=== PATIENT | female | born 1945 | race Caucasian/White ===

== ENCOUNTER 2017-02-21 23:17 | Emergency (ER) | payer OTHER ==
[~2017-02-21] VITALS: Ht 157.5 cm; Wt 50.5 kg
[~2017-02-21 23:17] MED LIST: CALC250T PO; CO-QCAP PO; DOCU1CAP39 PO; FISHCAP4 PO; FLUO40CA PO; FLUT1INH INH; HYDR200T3 PO; LACTCAP8 PO; MULT-65 PO; OMEG1CAP28 PO; OXYC-392 PO; PANT40TA3 PO; PRAV20TA2 PO; TIZA4TAB PO; TRAM50TA PO; TRAZ50TA12 PO
[2017-02-21 23:24] VITALS: BP 144/74; PULSE 71; RESP 12; TEMP 97.4; O2SAT 100
[2017-02-21 23:41] VITALS: BP 159/82; PULSE 71; RESP 20; O2SAT 100
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
[2017-02-22 00:18] LABS: AUTOMATED NEUTROPHIL # 5.4 TH/MM3 (1.8-7.7); BASOPHIL % 0.4 % (0.0-2.0); EOSINOPHIL % 0.6 % (0.0-4.0); HEMATOCRIT 38.1 % (35.0-46.0); HEMO FLAGS DIFF FINAL; LYMPH % 16.8 % (9.0-44.0); LYMPHOCYTE # 1.2 TH/MM3 (1.0-4.8); MEAN CELL VOLUME 91.2 FL (80.0-100.0); MEAN CORPUSCULAR HEMOGLOBIN 30.8 PG (27.0-34.0); MEAN CORPUSCULAR HGB CONC 33.8 % (32.0-36.0); MONO % 10.9 % (0.0-8.0); NEUT % 71.3 % (16.0-70.0); PLATELET COUNT 262 TH/MM3 (150-450); RED BLOOD COUNT 4.18 MIL/MM3 (4.00-5.30); RED CELL DISTRIBUTION WIDTH 13.4 % (11.6-17.2); WHITE BLOOD COUNT 7.4 TH/MM3 (4.0-11.0)
--- NOTE | 2017-02-22 00:32 | RADHPO ---
EXAM DATE/TIME: 02/22/2017 00:05 [facility] COMPARISON: No previous studies available for comparison. INDICATIONS : Short of breath. MEDICAL HISTORY : Hypercholesterolemia. Hypertension Gastroesophageal reflux disease. SURGICAL HISTORY : Cholecystectomy. Appendectomy. Tonsillectomy. ENCOUNTER: Initial ACUITY: 1 month PAIN SCORE: 5/10 LOCATION: Bilateral chest FINDINGS: The lungs are clear without infiltrate, nodule, or mass. There is no appreciable pleural effusion fo r technique. Heart and mediastinum are unremarkable. CONCLUSION: No acute cardiopulmonary disease. Gil Disla MD on February 22, 2017 at 0:29 Board Certified Radiologist. This report was verified electronically.
[2017-02-22 00:33] LABS: CHLORIDE 102 MEQ/L (98-107); POTASSIUM 3.7 MEQ/L (3.5-5.1); SODIUM (NA) 138 MEQ/L (136-145)
[2017-02-22 00:37] LABS: ANION GAP 5 MEQ/L (5-15); BICARBONATE 30.9 MEQ/L (21.0-32.0); BLOOD UREA NITROGEN 15 MG/DL (7-18); MAGNESIUM 2.3 MG/DL (1.5-2.5); PROTHROMBIN TIME - PATIENT 10.9 SEC (9.8-11.6)
[2017-02-22 00:39] VITALS: BP 132/62; PULSE 73; RESP 20; O2SAT 99
[2017-02-22] MEDS ORDERED: INDA1.25 PO (00:39)
[2017-02-22] MEDS ORDERED: ESTR42.5V VAGINAL (00:39)
[2017-02-22] MEDS ORDERED: ATOR40TA16 PO (00:39)
[2017-02-22] MEDS ORDERED: PLAV75TA29 PO (00:39)
[2017-02-22 00:40] LABS: ALT (GPT) 32 U/L (10-53); AST (GOT) 33 U/L (15-37); GLOMERULAR FILTRATION RATE 49 ML/MIN (>89)
[2017-02-22 00:42] LABS: TOTAL BILIRUBIN ADULT 0.3 MG/DL (0.2-1.0)
[2017-02-22 00:43] LABS: ALKALINE PHOSPHATASE 74 U/L (45-117)
[2017-02-22 01:30] VITALS: BP 137/67; PULSE 66; RESP 20
--- NOTE | 2017-02-22 02:24 | RADHPO ---
EXAM DATE/TIME: 02/22/2017 01:29 [facility] COMPARISON: CT ABDOMEN & PELVIS W/O CONTRAST, September 01, 2016, 4:53. INDICATIONS : Weakness. Shortness of breath. IV CONTRAST: 75 cc Omnipaque 350 (iohexol) IV RADIATION DOSE: 5.99 CTDIvol (mGy) MEDICAL HISTORY : Hernia, hiatal. Chronic obstructive pulmonary disease. Hypertension. SURGICAL HISTORY : Cholecystectomy. Celiac stent. ENCOUNTER: Initial ACUITY: 1 month PAIN SCALE: 0/10 LOCATION: chest TECHNIQUE: Volumetric scanning of the chest was performed using a pulmonary embolism protocol MIP images were re constructed. Using automated exposure control and adjustment of the mA and/or kV according to patien t size, radiation dose was kept as low as reasonably achievable to obtain optimal diagnostic quality images. FINDINGS: There is no evidence for PE for technique. There is a stent in the celiac artery. There are infi ltrates in right middle lobe, lingula and bilateral lower lobes. There is an approximate 8 mm nodule in the right upper lobe posteriorly with scattered parenchymal infiltrates in right upper lobe as wel l all of these are most likely inflammatory. CONCLUSION: There are infiltrates in lung nodules bilaterally most likely inflammatory without evidence for pulmo nary embolus, repeat noncontrast chest CT is suggested in 3 months as a conservative follow up after appropriate clinical therapy. Gil Disla MD on February 22, 2017 at 2:18 Board Certified Radiologist. This report was verified electronically.
[2017-02-22] MEDS ORDERED: IOHEXOL 350 MG/ML 10 ML VIAL (for RAD DIAG) IV ONE (02:25)
[2017-02-22] MEDS ORDERED: ZITHTAB PO (02:43)
[2017-02-22] MEDS ORDERED: ALBU6.7H INH (02:43)
[2017-02-22] MEDS ORDERED: MEDR4PAK PO (02:43)
[2017-02-22 02:56] VITALS: BP 140/62
--- NOTE | 2017-02-22 13:13 | EKG ---
Date Performed: 02/21/2017 Time Performed: 23:36:42 PTAGE: 71 years EKG: Sinus rhythm . Septal T wave changes are nonspecific Borderline ECG Compared to prior tracing no significant zhao e PREVIOUS TRACING 08/31/2016 18.34.19 DOCTOR: Sean Cabello Interpretating Date/Time 02/22/2017 13:11:06
== END 2017-02-22 02:58 | disposition home or self-care (01) ==
LOC: PHED 23:17
DX: R53.1 Weakness (principal); I10 Essential (primary) hypertension; J44.9 Chronic obstructive pulmonary disease, unspecified; R91.8 Other nonspecific abnormal finding of lung field; Z96.89 Presence of other specified functional implants; Z79.899 Other long term (current) drug therapy; Z79.01 Long term (current) use of anticoagulants
CPT/HCPCS: 71010; 71275; 80053; 83735; 83880; 84443; 84484; 85025; 85610; 85730; 93005; 99285; Q9967

== ENCOUNTER 2017-06-20 23:26 | Emergency (ER) | payer OTHER ==
[~2017-06-20] VITALS: Ht 157.5 cm; Wt 48.5 kg
[~2017-06-20 23:26] MED LIST changes: +ALBU6.7H INH; +ATOR40TA16 PO; +ESTR42.5V VAGINAL; +INDA1.25 PO; +MEDR4PAK PO; -OMEG1CAP28 PO; -OXYC-392 PO; +PLAV75TA29 PO; -PRAV20TA2 PO; +ZITHTAB PO
[2017-06-20 23:43] VITALS: BP 150/63; PULSE 100; RESP 16; TEMP 97.2; O2SAT 98
[2017-06-21 00:15] VITALS: RESP 18
[2017-06-21] MEDS ORDERED: MORPHINE SULFATE 8 MG/ML INJ IV PUSH ONE (00:15)
[2017-06-21] MEDS ORDERED: ONDANSETRON HCL 4 MG/2 ML VIAL IV PUSH ONE (00:15)
[2017-06-21] MEDS ORDERED: PERC10TA27 PO (00:36)
[2017-06-21] MEDS ORDERED: cefTRIAXone INJ 1,000 MG in SODIUM CHLORIDE 0.9% INJ 100 ML IV ONE (00:45)
[2017-06-21] MEDS ORDERED: oxyCODONE/ACETAMINOPHEN 10 MG/325 MG TAB PO ONE (01:00)
[2017-06-21] MEDS ORDERED: ZOFR8TAB PO (01:38)
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
[2017-06-21 01:52] VITALS: BP 130/66
[2017-06-22] MEDS ORDERED: ACYC800T PO (14:25)
[2017-06-22] MEDS ORDERED: ZOFR4TAB3 SL (14:25)
[2017-06-22] MEDS ORDERED: HYDR-3533 PO (14:25)
[2017-06-22] MEDS ORDERED: MAGICPED SWISH-SWAL (14:51)
== END 2017-06-21 02:12 | disposition home or self-care (01) ==
LOC: PHED 23:26
DX: K08.89 Other specified disorders of teeth and supporting structures (principal); M27.3 Alveolitis of jaws; Z87.891 Personal history of nicotine dependence
CPT/HCPCS: 64400; 96365; 96375; 99284; J0696; J2270; J2405

== ENCOUNTER 2017-06-22 13:34 | Emergency (ER) | payer OTHER ==
[~2017-06-22] VITALS: Ht 157.5 cm; Wt 50.0 kg
[~2017-06-22 13:34] MED LIST changes: +PERC10TA27 PO; +ZOFR8TAB PO
[2017-06-22 13:38] VITALS: BP 150/67; PULSE 100; RESP 22; TEMP 97.5; O2SAT 97
[2017-06-22] MEDS ORDERED: HYDR-3533 PO (14:25)
[2017-06-22] MEDS ORDERED: ZOFR4TAB3 SL (14:25)
[2017-06-22] MEDS ORDERED: ACYC800T PO (14:25)
--- NOTE | 2017-06-22 14:26 | PD ---
HPI Chief Complaint: Oral / Dental Pain or Problem Time Seen by Provider: 14:23 Travel History International Travel<30 days: No Contact w/Intl Traveler<30days: No Traveled to known affect area: No History of Present Illness HPI 71-year-old female presents to emergency department with complaint of left facial pain after tooth extraction a week ago. The tooth was extracted in [place]. He reports having continued pain since after the extraction. She just came from her dentist office where she was told they could have used a dirty needle, they could have fractured her jaw, or she could have something more going on and needs to come to the emergency department for evaluation. She is currently taking amoxicillin. Reports nausea without vomiting. I noticed a rash on the patient's left face and she states that she noticed it the day after her surgery. Says she can also feel lesions on the left side of her tongue. Denies history of shingles or shingles vaccination. Reports history of chickenpox. Has taken hydrocodone, oxycodone, use Magic mouthwash for symptom management. Allergies to acetaminophen, codeine, erythromycin base , hydromorphone, propoxyphene. 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) Neurologic: No Psychiatric: No Reproductive: No Respiratory: Yes Pneumonia: Yes ?: Not Menopausal: Yes : 2 Para: 2 Past Surgical History Abdominal Surgery: Yes (BOWEL RESECTION) Appendectomy: Yes Cardiac Surgery: No Cholecystectomy: Yes Ear Surgery: No Endocrine Surgery: No Eye Surgery: No Genitourinary Surgery: No Gynecologic Surgery: Yes (VAGINAL VAULT SUSPENSION) Hysterectomy: Yes Oral Surgery: No Thoracic Surgery: No Tonsillectomy: Yes Other Surgery: Yes Social History Alcohol Use: No Tobacco Use: No ("IN COLLEGE" QUIT AGE 24) Substance Use: No Allergies-Medications (Allergen,Severity, Reaction): Coded Allergies: acetaminophen (Unverified Adverse Reaction, Severe, HYPER, 06/22/17) codeine (Unverified Adverse Reaction, Severe, HYPER, 06/22/17) hydromorphone (Unverified Adverse Reaction, Severe, Rash, itching, 06/22/17 ) propoxyphene (Unverified Adverse Reaction, Severe, HYPER, 06/22/17) erythromycin base (Unverified Adverse Reaction, Intermediate, SICK, ) Reported Meds & Prescriptions Reported Meds & Active Scripts Active Magic Mouthwash Pediatric/Adult Liq (Lidocaine/Diphenhydr/Alum/Mg/Simeth) 60 Ml Susp 5 Ml SWISH-SWAL Q3HR Each 5mL contains: Diphenydramine 4.5mg, Viscous Lidocaine 2% 10mg, Maalox Advanced Regular Strength 2.7ml Zofran Odt (Ondansetron Odt) 4 Mg Tab 4 Mg SL Q8HR PRN Lortab (Hydrocodone-Acetaminophen) 5-325 Mg Tab 1-2 Tab PO Q6H PRN Acyclovir 800 Mg Tab 800 Mg PO 5 TIMES A DAY 7 Days Zofran (Ondansetron HCl) 8 Mg Tab 8 Mg PO TID Percocet (Oxycodone-Acetaminophen) 10-325 mg Tab 1 Tab PO Q4H PRN Proventil Hfa 6.7 GM Inh (Albuterol Sulfate) 90 Mcg/Act Aer 2 Puff INH Q4-6H PRN Medrol Dosepak (Methylprednisolone) 4 Mg Dspk 4 Mg PO DIRECTED Per Pharmacist direction Zithromax Z-Tano (Azithromycin) 250 Mg Dspk 250 Mg PO DIRECTED 500 MG (2 tabs) day 1, then 1 tab days 2-5. Dok (Docusate Sodium) 100 Mg Cap 100 Mg PO BID Pantoprazole (Pantoprazole Sodium) 40 Mg Tab 40 Mg PO DAILY Reported Estrace Vaginal (Estradiol) 0.01% Cream 1 Appl VAGINAL HS Atorvastatin (Atorvastatin Calcium) 40 Mg Tab 40 Mg PO HS Indapamide 1.25 Mg Tab 1.25 Mg PO DAILY Plavix (Clopidogrel Bisulfate) 75 Mg Tab 75 Mg PO DAILY Hydroxychloroquine (Hydroxychloroquine Sulfate) 200 Mg Tab 200 Mg PO BID Takw with food Breo Ellipta Inh (Fluticasone/Vilanterol) 100-25 Mcg/Act Inh 1 Puff INH DAILY Use daily at the same time. Probiotic (Lactobacillus Acidophilus) 1 Cap Cap 1 Cap PO DAILY Multi-Vitamin Daily (Multiple Vitamin) 1 Tab Tab 1 Tab PO DAILY Fish Oil + D3 (Fish Oil-Cholecalciferol) 1,200-1,000 Mg-Unit Cap 1 Cap PO DAILY Tramadol (Tramadol HCl) 50 Mg Tab 50 Mg PO Q6H PRN Trazodone (Trazodone HCl) 50 Mg Tab 50 Mg PO HS Fluoxetine (Fluoxetine HCl) 40 Mg Cap 40 Cap PO DAILY Tizanidine (Tizanidine HCl) 4 Mg Tab 4 Mg PO BID Calcium Citrate 250 Mg Tab 250 Mg PO DAILY Review of Systems Except as stated in HPI: all other systems reviewed are Neg Physical Exam Narrative GENERAL: Well-nourished, well-developed patient, in no acute distress SKIN: Warm and dry. Left chin and cheek with erythremic grouped vesicles present in a dermatomal distribution. No drainage or edema. HEAD: Atraumatic. Normocephalic. EYES: Pupils equal and round at 3 mm with brisk reaction. PERRLA. EOMI. left eye without scleral erythema and without lid edema. No orbital tenderness, erythema or cellulitis. Left eye without photophobia. No consensual photophobia. No scleral icterus. No drainage. Osborne lamp exam is normal and I see no dendritic lesions with florescence staining. EARS: Bilateral pinnae and external canals appear within normal limits. Bilateral tympanic membranes without erythema, dullness or perforation. ENT: Mucosa pink and moist. No erythema or exudates. No uvular edema. No uvular , palatal, or tonsillar deviation. Airway patent. MOUTH: Mucous membranes moist, no lesions, tongue and gums appear normal. Tongue with white coating noted; more on the left. Left lower tooth extraction area without signs of infection; without erythema, edema, drainage. No signs of dry socket. NECK: Trachea midline. CARDIOVASCULAR: Regular rate. RESPIRATORY: No accessory muscle use. GASTROINTESTINAL: Flat. MUSCULOSKELETAL: No obvious deformities. No clubbing. No cyanosis. No edema. NEUROLOGICAL: Awake and alert. Oriented 3. No obvious cranial nerve deficits. Motor grossly within normal limits. Normal speech. PSYCHIATRIC: Appropriate mood and affect; insight and judgment normal. Data Data Last Documented VS Vital Signs Date Time Temp Pulse Resp B/P (MAP) Pulse Ox O2 Delivery O2 Flow Rate FiO2 06/22/17 13:38 97.5 100 22 150/67 (94) 97 Room Air Orders Orders Morphine Inj (Morphine Inj) (06/22/17 14:30) MDM Medical Decision Making Medical Screen Exam Complete: Yes Emergency Medical Condition: Yes Medical Record Reviewed: Yes Differential Diagnosis Dental infection, dry socket, shingles Narrative Course 71-year-old female physical exam consistent with shingles rash to her left face. Says she can feel lesions to her left tongue; her tongue is coated white and it is worse on the left. Oropharynx appears normal. Patient is afebrile and nontoxic-appearing. She had tooth extraction one week ago and thought the pain was related to her tooth extraction. The area of tooth extraction is without signs of infection. No facial edema. Osborne lamp exam is normal and there is no dendritic lesions seen with fluorescein staining. Morphine administered in the ER. Acyclovir, Zofran, Lortab, Magic mouthwash prescribed for home. Instructed patient to follow up with primary care provider. Patient verbalizes understanding and agreement with treatment plan. Patient is medically cleared and stable for discharge. Discussed reasons to return to the emergency department. Patient agrees with treatment plan. The patients vital signs are stable and the patient is stable for outpatient follow-up and treatment. Patient discharged home, stable and in no acute distress. Diagnosis Primary Impression: Shingles Qualified Codes: B02.9 - Zoster without complications Referrals: Dentist Primary Care Physician Patient Instructions: General Instructions, Shingles (ED) Departure Forms: Tests/Procedures, Work Release Enter return to work date: Jun 28, 2017 Additional Instructions: Shingles is contagious Keep area covered with clothing to avoid spreading to others Wash hands frequently Take medications as prescribed Cold, wet compresses to the rash to help relieve itching and pain as needed Cool Bath to help relieve itching and pain as needed Follow-up with a primary care provider Return to the emergency department immediately with worsening of symptoms Med/Other Pt SpecificInfo: Prescription(s) given Scripts Pskpjofwalfieaa-Zuyktpuwb-Jyr-Alum-Simeth Liq (Magic Mouthwash Pediatric/Adult Liq) 60 Ml Susp 5 ML SWISH-SWAL Q3HR for Mouth sores, #60 ML 0 Refills Each 5mL contains: Diphenydramine 4.5mg, Viscous Lidocaine 2% 10mg, Maalox Advanced Regular Strength 2.7ml Prov: Laisha Varela 06/22/17 Ondansetron Odt (Zofran Odt) 4 Mg Tab 4 MG SL Q8HR Y for Nausea/Vomiting, #10 TAB 0 Refills Prov: Laisha Varela 06/22/17 Hydrocodone-Acetaminophen (Lortab) 5-325 Mg Tab 1-2 TAB PO Q6H Y for PAIN, #20 TAB 0 Refills Prov: Laisha Varela 06/22/17 Acyclovir (Acyclovir) 800 Mg Tab 800 MG PO 5 TIMES A DAY for Mgmt Viral Infection for 7 Days, TAB 0 Refills Prov: Laisha Varela 06/22/17 Disposition: 01 DISCHARGE HOME Condition: Stable Laisha Varela Jun 22, 2017 14:26
[2017-06-22] MEDS ORDERED: MORPHINE SULFATE 4 MG/ML INJ IM ONE (14:30)
[2017-06-22] MEDS ORDERED: MAGICPED SWISH-SWAL (14:51)
== END 2017-06-22 15:39 | disposition home or self-care (01) ==
LOC: NEPK 13:34
DX: B02.9 Zoster without complications (principal); D64.9 Anemia, unspecified; M19.90 Unspecified osteoarthritis, unspecified site; F41.9 Anxiety disorder, unspecified; F32.9 Major depressive disorder, single episode, unspecified; E78.00 Pure hypercholesterolemia, unspecified; J44.9 Chronic obstructive pulmonary disease, unspecified; M79.7 Fibromyalgia; I10 Essential (primary) hypertension
CPT/HCPCS: 96372; 99284; J2270